=== PATIENT | female | born 1980 ===

== ENCOUNTER 2023-11-08 05:51 | Day surgery (SDC) | payer OTHER ==
[2023-11-08] MEDS ORDERED: CEFAZOLIN SODIUM 1,000 MG VIAL ONE (07:57)
[2023-11-08] MEDS ORDERED: EPINEPHRINE HCL/PF 1 MG/ML AMPUL ONE (11:16)
[2023-11-08] MEDS ORDERED: POVIDONE-IODINE 118 ML BOTT TOP ONE (11:16)
[2023-11-08] MEDS ORDERED: LIDOCAINE HCL 1%/EPINEPHRINE 20ML VIAL IJ ONE ×2 (11:16→13:13)
[2023-11-08] MEDS ORDERED: DEXAMETHASONE SODIUM PHOSPHATE 4 MG/ML VIAL ONE (11:28)
[2023-11-08] MEDS ORDERED: CIPROFLOXACIN HCL 0.175 MG/DR DROPS OTIC ONE (14:30)
[2023-11-08] MEDS ORDERED: BACITRACIN 28.35 GM OINT.TUBE TOP ONE (14:30)
[2023-11-08] MEDS ORDERED: CEPHALEXIN500 MG PO (15:05)
[2023-11-08] MEDS ORDERED: CIPROFLOXACIN2.5 ML OTIC (15:05)
[2023-11-08] MEDS ORDERED: MORPHINE SULFATE 4 MG/ML VIAL IV ONE ×2 (15:20→15:35)
[2023-11-08] MEDS ORDERED: ONDANSETRON HCL 2 MG/ML VIAL ONE (16:13)
== END 2023-11-08 17:40 | disposition home or self-care (01) ==
LOC: CIR.AMB 05:51
PROVIDERS: ATTEND Otolaryngology Otology & Neurotology
DX: H71.22 Cholesteatoma of mastoid, left ear (principal); H71.02 Cholesteatoma of attic, left ear; H72.12 Attic perforation of tympanic membrane, left ear